=== PATIENT | female | born 1950 | race Two or more races ===

== ENCOUNTER 2018-06-17 07:44 | Outpatient (CLI) | payer OTHER ==
[~2018-06-17] VITALS: Ht 152.4 cm; Wt 86.2 kg
== END 2018-06-17 08:00 | disposition home or self-care (01) ==
LOC: OFIC 805 07:44
DX: J31.0 Chronic rhinitis (principal); H93.11 Tinnitus, right ear; H90.3 Sensorineural hearing loss, bilateral; H61.23 Impacted cerumen, bilateral

== ENCOUNTER 2018-08-12 07:42 | Outpatient (CLI) | payer OTHER ==
[~2018-08-12] VITALS: Ht 152.4 cm; Wt 86.2 kg
== END 2018-08-12 08:00 | disposition home or self-care (01) ==
LOC: OFIC 805 07:42
DX: H93.11 Tinnitus, right ear (principal); H90.3 Sensorineural hearing loss, bilateral; M26.611 Adhesions and ankylosis of right temporomandibular joint

== ENCOUNTER 2018-09-30 07:09 | Outpatient (CLI) | payer OTHER ==
[~2018-09-30] VITALS: Ht 152.4 cm; Wt 86.2 kg
== END 2018-09-30 07:20 | disposition home or self-care (01) ==
LOC: OFIC 805 07:09
DX: H93.11 Tinnitus, right ear (principal); H90.3 Sensorineural hearing loss, bilateral

== ENCOUNTER 2018-11-16 15:41 | Outpatient (CLI) | payer OTHER | END 2018-11-16 15:51 | disposition home or self-care (01) | LOC: RAD 15:41 | DX: R07.89 Other chest pain (principal) ==

== ENCOUNTER → 2019-08-02 09:44 | Outpatient (CLI) | payer OTHER | END | disposition home or self-care (01) | LOC: LAB 09:44 | DX: D68.8 Other specified coagulation defects (principal); E78.2 Mixed hyperlipidemia; N39.0 Urinary tract infection, site not specified; I10 Essential (primary) hypertension ==

== ENCOUNTER → 2019-10-17 | Outpatient (CLI) | payer OTHER ==
[~2019-10-17] MED LIST: FLONASE16 GM NASAL; OMEPRAZOLE40 MG PO; PEPCID AC20 MG PO; ZYRTEC10 M3 PO
== END | disposition home or self-care (01) ==
LOC: OFIC 805 15:15
PROVIDERS: ATTEND Otolaryngology
DX: K21.9 Gastro-esophageal reflux disease without esophagitis (principal); H61.23 Impacted cerumen, bilateral; R09.81 Nasal congestion